=== PATIENT | male | born 1990 | race Caucasian/White ===

== ENCOUNTER 2017-11-30 01:00 | Emergency (ER) | payer SELFPAY ==
[~2017-11-30] VITALS: Ht 188 cm; Wt 106.6 kg
[2017-11-30 01:03] VITALS: BP 147/89
[2017-11-30 01:10] VITALS: BP 147/89
--- NOTE | 2017-11-30 01:10 | NUR ---
TOLOBBY, AMB, VSS, A/W BED, ERMD NOTED
--- NOTE | 2017-11-30 01:20 | NUR ---
TO ER BED 1
--- NOTE | 2017-11-30 01:43 | NUR ---
PT ASKED ME "WILL IT COST ANYTHING FOR MY STAY HERE", ADVISED PT TO FOLLOW UP W/ ADMITING, ADMITING PERSONEL IS HERE TO ANSWER QUESTIONS, PT THEN ASKED TO GO TO HIS CAR FOR "INSURANCE INFORMATION", MYSELF AND ADMITING TOLD PT THAT HE CAN GO TO HIS CAR LATER AND THAT HE NEEDS TO STAY FOR TX. PT STILL WALKED OUT, WILL WAIT TO SEE IF PT RETURN.
--- NOTE | 2017-11-30 01:43 | NUR ---
PT C/O CHEST TIGHTNESS X2 WEEKS. PT DENIES PAIN TO CHEST ONLY TIGHTNESS, DENIES SOB. RR EVEN AND UNLABORED, ABD IS ROUND, SOFT, NONTENDER. PT STATES HE WAS BRUSHING HIS TEETH AND SPIT UP BLOOD. PT STATES HE "EXPERIMENTS W/DRUGS MARIJUANA AND CRYSTAL METH". PMH HTN, ANXIETY PT STATES HE DOES NOT TAKE HIS RX REGUARLY.
--- NOTE | 2017-11-30 01:55 | NUR ---
PT HAS NOT RETURNED.
== END 2017-11-30 02:02 | disposition left against medical advice (07) ==
LOC: MED 01:00
DX: F41.9 Anxiety disorder, unspecified (principal); I10 Essential (primary) hypertension; Z90.89 Acquired absence of other organs; F17.210 Nicotine dependence, cigarettes, uncomplicated
CPT/HCPCS: 93005; 99283